=== PATIENT | female | born 1955 | race Caucasian/White ===

== ENCOUNTER 2023-12-05 23:36 | Emergency (ER) | payer MEDICARE, OTHER ==
[~2023-12-05] VITALS: Ht 167.6 cm; Wt 100.0 kg
[2023-12-06] MEDS: ketorolac trometh 15mg/ml vial 15 MG/ML ML IM ONE (00:16)
[2023-12-06 01:22] VITALS: BP 136/72; PULSE 72; RESP 13; TEMP 100; O2SAT 95
== END 2023-12-06 01:24 | disposition home or self-care (01) ==
LOC: ER 23:36
DX: S93.402A Sprain of unspecified ligament of left ankle, initial encounter (principal); X50.1XXA Overexertion from prolonged static or awkward postures, initial encounter; Y93.89 Activity, other specified; Y92.89 Other specified places as the place of occurrence of the external cause; Y99.8 Other external cause status
CPT/HCPCS: 73610; 96372; 99284; J1885